=== PATIENT | male | born 1960 | race Caucasian/White ===

== ENCOUNTER → 2017-07-14 | Outpatient (CLI) | payer OTHER ==
[~2017-07-14] VITALS: Ht 193 cm; Wt 124.3 kg
[~2017-07-14] MED LIST: ALPRAZOLAM2 MG PO; ASPIR 8181 MG PO; BAYER PLUS 500500 MG PO; CYMBALTA60 MG PO; EFFIENT10 MG PO; FISH OIL 1,001000 M2 PO; FLEXERIL; FLEXERIL PO; ISOSORBIDE DINI30 MG PO; LEVOTHYROXIN0.137 M1 PO; LIDODERM 5%1 PATC1 TRANSDERM; LISINOPRIL2.5 M1 PO; LISINOPRIL5 MG PO; LOPRESSOR25 PO; LYRICA 75 MG CA75 MG PO; MOBIC15 MG PO; NIASPAN 500 MG500 M1 PO; NITROGLYCERIN0.4 MG SL; PERCOCET 10-321 EACH PO; PERCOCET 5-3251 EACH PO; PRAVACHOL40 MG PO; SIMVASTATIN80 MG PO; TOPIRAGEN50 MG PO; TRAMADOL 50 MG50 MG PO
--- NOTE | ~2017-07-14 | P ---
[facility] [place] [address] PROCEDURE REPORT Name: MURPHY HARVEY Room #: REG SCOUT [facility]#: [id number] Admission: 07/14/17 Attend Phys: Juaquin Lemus MD Discharge: Date of : 58 Report #: [id number] THIS REPORT FOR: //name// CC: Juaquin Henderson MD BRIEF HISTORY: The patient is a 57-year-old male for his first average risk screening colonoscopy. PREOPERATIVE DIAGNOSIS: Average risk screening colonoscopy. POSTOPERATIVE DIAGNOSES: 1. Colon polyps. 2. Moderate sigmoid diverticulosis coli. MEDICATIONS: Deep sedation with propofol per anesthesia. SPECIMENS: 1. Diminutive polyp, hepatic flexure. 2. Diminutive polyp, mid transverse colon. ESTIMATED BLOOD LOSS: 3 mL. PROCEDURE: Colonoscopy to cecum and ileocecal valve with biopsy. FINDINGS: Prior to propofol sedation, the procedure of colonoscopy discussed with the patient as well as potential risks, benefits, and complications. He indicates he understands and desires to proceed. With the patient in left lateral decubitus position, digital examination was completed, which revealed no abnormalities. Subsequently, the [employer] video colonoscope was introduced in the rectum, advanced under direct vision to the cecum. The cecum was identified by the ileocecal valve and the appendiceal orifice. I was able to visualize the ileocecal valve and villi were seen. However, due to looping, we could not intubate the ileocecal valve. At that point, the scope was slowly withdrawn and careful circumferential views were obtained including retroflexing the scope in the ascending colon. Upon slow withdrawal of the scope, the prep was noted to be excellent. Mucosa was within normal limits, normal vascular pattern, and normal light reflex. As we withdrew the scope, no abnormalities were noted until the hepatic flexure was reached at which point a diminutive polyp was seen and removed by biopsy. The scope was further withdrawn and another diminutive polyp was seen and removed by biopsy from the mid transverse colon. Upon further withdrawal of the scope, no additional polyps were seen. The mucosa was otherwise normal through the remainder of the exam. In the sigmoid colon, there was noted to be moderately severe diverticular disease without endoscopic evidence of diverticulitis. The [address] [address] PROCEDURE REPORT Name: MURPHY HARVEY Room #: REG [facility].#: [id number] Admission: 07/14/17 Attend Phys: Juaquin Lemus MD Discharge: Date of : 58 Report #: [id number] scope was withdrawn in the rectum. Upon retroflexion, small to moderate internal hemorrhoids were seen. Scope was withdrawn. The patient tolerated the procedure well. CONDITION OF THE PATIENT UPON DISCHARGE: Following procedure, the patient drowsy, aroused, conversant and will be discharged to home when fully ambulatory. INSTRUCTIONS TO THE PATIENT AND FAMILY AT THE TIME OF DISCHARGE: We will follow up on the path of the polyps. If either one is an adenoma, he should return in 5 years for followup colonoscopy. If these are not neoplastic lesions, then 10 years would be indicated. He has had some problems with constipation, which has been a chronic problem. This is likely a result of his chronic use of narcotics. High fiber diet and fiber supplementation may be helpful. He also may use MiraLax on a daily basis for constipation. This is the patient's first colonoscopy. Withdrawal time from cecum was 19 minutes and 36 seconds. <ELECTRONICALLY SIGNED> By: Juaquin Lemus MD 07/16/17 1158 1001 1230 Juaquin Lemus MD /nt
--- NOTE | ~2017-07-14 | S ---
[facility] [place] [address] SURGICAL PATH RPT PROCEDURE Name: MURPHY BETTENCOURT Room #: REG SCOUT [facility].#: [id number] Admission: 07/14/17 Date of : 58 Discharge: Report #: [id number] Path Case #: [id number] PATHOLOGY REPORT COLLECTION DATE: 07/14/2017 RECEIVED DATE: 07/14/2017 SUBMITTING PHYS: Dr. Juaquin Lemus OTHER PHYS: Dr. Ata Henderson SPECIMEN(S) RECEIVED: A.Hepatic flexure polyp biopsy B.Mid transverse colon polyp biopsy * * * * * * * * * * * * FINAL DIAGNOSIS: A. "Hepatic flexure polyp biopsy", biopsy: - Tubular adenoma; no high-grade dysplasia. B. "Mid transverse colon polyp biopsy", biopsy: - Tubular adenoma; no high-grade dysplasia. (CLW:aleyda; 07/15/2017) PATHOLOGIST: Divya Coulter M.D. REPORT ELECTRONICALLY SIGNED BY: Divya Coulter M.D. DATE/TIME: 07/15/2017 13:15 * * * * * * * * * * * * GROSS PATHOLOGY: A. Received in formalin labeled "Rut Murphy, hepatic flexure biopsy" and consists of 4 mayen mucosal biopsies ranging in size from 0.1 cm-0.3 cm in greatest dimension. The specimen is totally submitted as A1. B. Received in formalin labeled "Murphy Bettencourt, mid transverse colon polyp" and consists of 2 mayen mucosal biopsies each averaging 0.3 cm. The specimen is totally submitted as B1. (ELEAZAR; 07/14/2017) CLINICAL HISTORY: Screening, colon polyps, diverticulosis, hemorrhoids INITIAL CPT CODE(S): A; 79484 B; 49546 Professional services performed by [facility] at [facility] [address] , [place] [address] [facility] [address] [place] [address] SURGICAL PATH RPT PROCEDURE Name: MURPHY BETTENCOURT Room #: REG CLRhea [facility].#: [id number] Admission: 07/14/17 Date of : 58 Discharge: Report #: [id number] Path Case #: [id number] Technical services performed by [facility] at [address] [place] [address], [facility] [address], [place] [address]. [facility] [address] [place] [address] PHONE: [phone] DIRECTOR: Dennis Ayala M.D. * * * END OF REPORT * * *
== END | disposition home or self-care (01) ==
LOC: GI 08:05
DX: D12.3 Benign neoplasm of transverse colon (principal); K57.30 Diverticulosis of large intestine without perforation or abscess without bleeding; I10 Essential (primary) hypertension; I25.2 Old myocardial infarction; E03.9 Hypothyroidism, unspecified; G47.33 Obstructive sleep apnea (adult) (pediatric); M10.9 Gout, unspecified; F17.210 Nicotine dependence, cigarettes, uncomplicated; F32.89 Other specified depressive episodes; F41.8 Other specified anxiety disorders; Z98.890 Other specified postprocedural states; Z95.5 Presence of coronary angioplasty implant and graft; Z88.8 Allergy status to other drugs, medicaments and biological substances; Z79.82 Long term (current) use of aspirin; Z79.891 Long term (current) use of opiate analgesic; Z79.899 Other long term (current) drug therapy
CPT/HCPCS: 62110; 62900

== ENCOUNTER 2018-07-01 05:41 | Inpatient (IN) | payer OTHER ==
[2018-07-01] VITALS (38 sets, daily range): BP systolic 90–157; BP diastolic 67–99
[~2018-07-01] VITALS: Ht 193 cm; Wt 126.6 kg
[2018-07-01] MEDS ORDERED: SYNTHROID150 MCG PO ×2 (05:50→10:25)
[2018-07-01 06:03] LABS: HEMATOCRIT 45.9 % (42.0-52.0); HEMOGLOBIN 14.9 gm/dL (14.0-18.0); MCHC 32.6 g/dL (28.0-37.0); MCV 95.2 fL (80.0-100.0); PLATELET COUNT 180 thou/uL (150-400); RBC 4.82 mil/uL (4.50-6.00); RDW 14.8 % (10.5-14.5); WBC 14.8 thou/uL (4.0-11.0)
[2018-07-01 06:12] LABS: ANION GAP 17 mmol/L (7-16); BUN 34 mg/dL (7-18); CALCIUM 8.9 mg/dL (8.5-10.1); CHLORIDE 101 mmol/L (98-107); CO2 18 mmol/L (21-32); CREATININE 2.9 mg/dL (0.7-1.3); GLUCOSE 114 mg/dL (74-106); POTASSIUM 5.9 mmol/L (3.5-5.1); SODIUM 136 mmol/L (136-145)
[2018-07-01 06:23] LABS: ALBUMIN 2.9 g/dL (3.4-5.0); SGPT 1926 U/L (30-65); TOTAL BILIRUBIN 1.2 mg/dL (<0.1-1.0); TOTAL PROTEIN 7.2 g/dL (6.4-8.2); TROPONIN-I <0.06 ng/mL (<0.06)
[2018-07-01 06:43] LABS: ABSOLUTE NEUTROPHILS 11.1 thou/uL (1.4-8.2)
[2018-07-01 06:44] LABS: BE(vivo) -7.2 mmol/L (-2 to +3); HCO3 19.4 mmol/L (22.0-26.0); PCO2 42.9 mmHg (35.0-45.0); PO2 68.1 mmHg (80.0-100.0); pH 7.273 (7.360-7.450); sO2 91.2 % (92.0-98.0)
[2018-07-01 06:56] LABS: SGOT 3269 U/L (15-37)
[2018-07-01 08:38] LABS: URINE CLARITY SL CLOUDY; URINE COLOR AMBER; URINE SPECIFIC GRAVITY > 1.030 (1.005-1.035)
[2018-07-01 08:39] LABS: ICTOTEST (BILI CONFIRMATORY) Negative (Negative); URINE BILIRUBIN NEGATIVE (Negative); URINE BLOOD 1+ (Negative); URINE GLUCOSE-RANDOM* NEGATIVE (Negative); URINE KETONES TRACE (Negative); URINE LEUKOCYTES-REFLEX NEGATIVE (Negative); URINE NITRITE-REFLEX POSITIVE (Negative); URINE PROTEIN (DIPSTICK) 2+ (Negative); URINE UROBILINOGEN 0.2 E.U./dl (0.2-1.0)
[2018-07-01 08:45] LABS: AMP/METHAMP Negative (Negative); BARBITURATES Negative (Negative); BENZODIAZEPINES POSITIVE (Negative); COCAINE Negative (Negative); METHADONE Negative (Negative); OPIATES POSITIVE (Negative); PCP Negative (Negative)
[2018-07-01 08:55] LABS: AMORPHOUS URATES Moderate /LPF (None Seen); COARSE GRANULAR CASTS >10 Many /LPF (None Seen); FINE GRANULAR CASTS 4-10 Moderate /LPF (None Seen); HYALINE CASTS 0-3 Few /LPF (None Seen); MUCUS >6 Heavy strn/LPF (None Seen); SQUAMOUS 4-10 Moderate /LPF (0-3); URINE RBC 0-2 Rare /HPF (0-2); URINE WBC-REFLEX 6-15 Few /HPF (0-5)
[2018-07-01 09:04] LABS: APTT 28.3 Seconds (24.5-32.8); INR 1.4; PROTIME 14.9 Seconds (9.3-11.4)
[2018-07-01 09:15] LABS: TROPONIN-I 0.07 ng/mL (<0.06)
--- NOTE | 2018-07-01 10:50 | EKG ---
[address] [place] [address] ELECTROCARDIOGRAM REPORT Name: MURPHY HARVYE Room #: 240-P ADM IN M.R.#: [id number] Admission: 07/01/18 Attend Phys: Ulises Renae Discharge: Date of : 58 Report #: [id number] THIS REPORT FOR: //name// [facility] ED Test Date: 2018-07-01 Test Time: 06:12:18 Pat Name: MURPHY HARVEY Department: Room: 240 Gender: M Field Radio Technician: POLLY : 1960 Requested By: Clare Flores Order Number: [id number] MD: Estrada Lyle Measurements Intervals Malone Rate: 66 P: 58 SC: 153 QRS: 87 QRSD: 114 T: 42 QT: 489 QTc: 513 Interpretive Statements Sinus rhythm Abnormal T, consider ischemia, anterior leads Prolonged QT interval Compared to ECG 08/12/2016 16:08:33 T-wave abnormality now present Prolonged QT interval now present Electronically Signed On 07-01-2018 10:50:23 SENIOR MANAGEMENT CONSULTANT by Estrada Lyle [email or web address] <ELECTRONICALLY SIGNED> By: Estrada Lyle MD, [facility] 07/01/18 1050 1 1 Estrada Lyle MD, [facility] /EPI
--- NOTE | 2018-07-01 12:50 | NUR ---
CONSULTED TO PLACE A PICC FOR A PATIENT ADMITTED TO ICU WITH RR DISTRESS. ORDER AND CONSENT NOTED. THE PROCEDURE WELL BENIFITS AND RISK OF DVT AND INFECTION DISCUSSED WITH THE PATIENT AND HE VERBALIZED UNDERSTANDING. THE RUE BASILIC WAS WIDLEY PATENT. A #5F TRIPLE LUMEN POWER PICC WAS PLACED PER HOSPITAL POLICY AFTER A BEDSIDE TIMEOUT WAS COMPLETED. THE LINE WAS TRIMMED TO 53CM AND ADVANCED WITHOUT DIFFICULTY.A STAT CHEST XRAY WAS ORDERED FOR PLACEMENT VERIFICATION
--- NOTE | 2018-07-01 13:52 | 2DMMODE ---
[facility] [address] [place] [address] 2 D/M-MODE ECHOCARDIOGRAM Name: MURPHY HARVEY Room #: 240-P [facility] IN M.R.#: [id number] Admission: 07/01/18 Attend Phys: Ulises Cordova Discharge: Date of : 58 Date of Service: 07/01/18 1351 Report #: [id number] THIS REPORT FOR: //name// APPROVED REPORT Study performed: 07/01/2018 09:31:26 EXAM: Comprehensive 2D, Doppler, and color-flow Echocardiogram Patient Location: Bedside Room #: 240 Status: on-call BSA: 2.55 HR: 65 bpm BP: 103/74 mmHg Rhythm: NSR Other Information Study Quality: Adequate Risk Factors: Cardiac Risk Factors: Smoking, Hyperlipidemia, HTN Indications CAD Syncope Cardiogenic Shock 2D Dimensions IVSd: 14.54 (7-11mm) LVOT Diam: 20.00 (18-24mm) LVDd: 42.02 mm PWd: 12.78 (7-11mm) Ascending Ao: 34.93 (22-36mm) LVDs: 27.74 (25-40mm) Aortic Root: 34.65 mm Aortic Valve AoV Peak Sukhdeep.: 1.10 m/s AO Peak Gr.: 4.81 mmHg LVOT Max P.13 mmHg LVOT Max V: 0.73 m/s JESSICA Vmax: 2.01 cm2 Mitral Valve E/A Ratio: 0.7 MV Decel. Time: 249.49 ms MV E Max Sukhdeep.: 0.60 m/s [facility] [address] [place] [address] 2 D/M-MODE ECHOCARDIOGRAM Name: MURPHY HARVEY Room #: 240-P [facility] IN ..#: [id number] Admission: 07/01/18 Attend Phys: Ulises Cordova Discharge: Date of : 58 Date of Service: 07/01/18 1351 Report #: [id number] MV A Sukhdeep.: 0.83 m/s MV PHT: 72.35 ms IVRT: 55.36 ms TDI E/Lateral E': 7.50 E/Medial E': 7.50 Medial E' Sukhdeep.: 0.08 m/s Lateral E' Sukhdeep.: 0.08 m/s Pulmonary Valve PV Peak Sukhdeep.: 0.70 m/s PV Peak Gr.: 1.94 mmHg Tricuspid Valve TR Peak Sukhdeep.: 3.15 m/s RAP Estimate: 10.00 mmHg TR Peak Gr.: 39.76 mmHg PA Pressure: 50.00 mmHg Left Ventricle The left ventricle is normal size. There is normal LV segmental wall motion. Moderate concentric left ventricular hypertrophy. Left ventricular systolic function is normal. The left ventricular ejection fraction is within the normal range. LVEF is 60-65%. Grade I - abnormal relaxation pattern. Right Ventricle Right ventricle is dilated. Right ventricular systolic function is reduced. Atria The left atrium size is normal. Right atrium is dilated. Aortic Valve The aortic valve is sclerotic. No aortic regurgitation is present. There is no aortic valvular stenosis. Mitral Valve The mitral valve is normal in structure. There is no mitral valve regurgitation noted. No evidence of mitral valve stenosis. Tricuspid Valve The tricuspid valve is normal in structure. Moderate tricuspid regurgitation. Pulmonary artery pressure is 50 mmHg. Pulmonic Valve The pulmonary valve is normal in structure. Trace to mild pulmonic regurgitation. [facility] [place] [address] 2 D/M-MODE ECHOCARDIOGRAM Name: MURPHY HARVEY Room #: 240-P ADM IN M.R.#: [id number] Admission: 07/01/18 Attend Phys: Ulises Cordova Discharge: Date of : 58 Date of Service: 07/01/18 1351 Report #: [id number] Great Vessels The aortic root is normal in size. IVC is normal in size and collapses <50% with inspiration. Pericardium There is no pericardial effusion. <Conclusion> Left ventricular systolic function is normal. There is normal LV segmental wall motion. LVEF is 60-65%. Mild diastolic dysfunction Right ventricle and atrium are dilated. Right ventricular systolic function is reduced. The aortic valve is sclerotic. No aortic regurgitation or stenosis The mitral valve is normal in structure. No mitral valve regurgitation. Moderate tricuspid regurgitation. Pulmonary artery pressure of 50 mmHg. There is no pericardial effusion. <ELECTRONICALLY SIGNED> By: Estrada Lyle MD, FACC 07/01/18 135 50 50 Estrada Lyle MD, FACC /INF
--- NOTE | 2018-07-01 18:28 | NUR ---
PT A/O X 4 /C FORGETFULLNESS - COMPULSIVENESS THAT REQUIRES REMINDERS TO STAY IN BED LEAVE CATHETER ALONE LEAVE OXYGEN MASK ON - VSS - FAMILY AT BEDSIDE MAJORITY OF DAY - MEDICATIONS GIVEN PER ORDERS - PICC IN PLACE - BM X 1 - MOMENTS OF ANXIOUSNESS BUT ABLE TO REDIRECT AND CALM - DOES START DESATING WHEN OXYGEN MASK IS REMOVED
[2018-07-02] VITALS (21 sets, daily range): BP systolic 107–160; BP diastolic 65–105
[2018-07-02 03:25] LABS: BE(vivo) 6.6 mmol/L (-2 to +3); HCO3 31.7 mmol/L (22.0-26.0); PCO2 47.1 mmHg (35.0-45.0); PO2 66.5 mmHg (80.0-100.0); pH 7.446 (7.360-7.450); sO2 93.8 % (92.0-98.0)
[2018-07-02 05:46] LABS: MCHC 33.1 g/dL (28.0-37.0); MCV 93.4 fL (80.0-100.0); RBC 4.18 mil/uL (4.50-6.00); RDW 14.7 % (10.5-14.5); WBC 8.7 thou/uL (4.0-11.0)
[2018-07-02 05:48] LABS: HEMOGLOBIN 12.9 gm/dL (14.0-18.0)
[2018-07-02 05:58] LABS: INR 1.3; PROTIME 13.4 Seconds (9.3-11.4)
[2018-07-02 06:03] LABS: ALBUMIN 2.7 g/dL (3.4-5.0); ANION GAP 4 mmol/L (7-16); BUN 17 mg/dL (7-18); CALCIUM 8.1 mg/dL (8.5-10.1); CHLORIDE 102 mmol/L (98-107); CO2 34 mmol/L (21-32); GLUCOSE 93 mg/dL (74-106); MAGNESIUM 2.2 mg/dL (1.8-2.4); POTASSIUM 3.9 mmol/L (3.5-5.1); SGPT 2359 U/L (30-65); SODIUM 140 mmol/L (136-145); TOTAL BILIRUBIN 0.8 mg/dL (<0.1-1.0); TOTAL PROTEIN 6.4 g/dL (6.4-8.2); TROPONIN-I <0.06 ng/mL (<0.06)
[2018-07-02 06:07] LABS: CREATININE 0.9 mg/dL (0.7-1.3)
[2018-07-02 06:20] LABS: SGOT 3677 U/L (15-37)
--- NOTE | 2018-07-02 08:00 | NUR ---
ASSUMED CARE OF PT AT 1900. PT ON VENTIMASK 50%. PT EXTREMELY RESTLESS AND IMPULSIVE THROUGHOUT THE NIGHT. PT WAS OFTEN EXTREMELY AGITATED AND UNCOOPERATIVE WITH NURSING STAFF. IN HOUSE WATCHER LOOKOUT TOWER CONTACTED FOR SOME ANTI-ANXIETY MEDICATION FOR PT; ORDER FOR A ONETIME DOSE OF 1 MG OF ATIVAN RECEIVED. HELPED CALM PT SLIGHLTLY FOR A SHORT PERIOD OF TIME. PT WAS EXTREMELY AGITATED AND SAT UP ON THE SIDE OF THE BED. PT ASKED, "WHAT AM I SUPPOSED TO BE DOING HERE? I'M NOT JUST EXPECTED TO SIT HERE, AM I?" DESPITE THOROUGH EDUCATION, OVER THE COURSE OF THE ENTIRE NIGHT, PT INSISTED THAT HE WAS NOT SICK AND DID NOT BELONG IN A HOSPITAL. PT TOLD NURSING STAFF THAT HE DID NOT NEED TO WEAR THE VENTIMASK DESPITE BEING INFORMED THAT HE WAS REQUIREING HIGH AMOUNTS OF O2 AT THE TIME. PT EXTREMELY WEAK AND UNSTEADY ON FEET, BUT PT INSISTED THAT HE WAS GOING TO WALK TO THE TOILET. PT WAS UNCOOPERATIVE AND DID NOT UNDERSTAND WHY HE WAS SUPPOSED TO STAY HERE. WITH THE PT'S SAFETY AT RISK, SECURITY WAS CALLED TO THE ROOM. STAFF HELPED THE PT BACK INTO BED. ABG DRAWN BY RT. DR. CHO CALLED AND INFORMED ON PT'S CURRENT CONDITION. HALDOL ORDERED AND PT PLACED ON NC. HALDOL CALMED PT SOMEWHAT, BUT REMAINED UNCOOPERATIVE AND AGITATED, REFUSING CARE, ATTEMPTING TO PULL AT CATHETER AND OXYGEN; RESTRAINTS WERE APPLIED FOR PT SAFETY. ASSESSMENTS AND VITALS DOCUMENTED. WILL CONTINUE TO MONITOR.
--- NOTE | 2018-07-02 08:50 | HC ---
[facility] [place] [address] CONSULTATION Name: MURPHY HARVEY Room #: 240-P [facility] IN M.R.#: [id number] Admission: 07/01/18 Attend Phys: Ulises Renae Discharge: Date of : 58 Report #: [id number] THIS REPORT FOR: //name// CC: Ulises Henderson MD REASON FOR CONSULTATION: The patient is a 58-year-old male, admitted to the Emergency Room with markedly abnormal liver function studies. HISTORY OF PRESENT ILLNESS: This 58-year-old male has a history of multiple medical problems, but most notably chronic back pain. He is on chronic narcotics due to his back pain. He reports that he just has not been feeling well since the first of the year. He is somewhat vague on symptoms. He said he just does not feel right. He does not have much appetite. He does not feel like eating. He denies any fever or chills, but reports he has sweats at night time. Apparently, last night before presentation to the Emergency Room, he had a syncopal event. He says he fell out of bed and fell on the floor. He reports that he has just been generally feeling weak. He was brought to [facility] and evaluated in the Emergency Room. Laboratory studies showed a white count of 14.8, hemoglobin 14.9, platelet count 180,000. INR of slightly 1.4, sodium 136, potassium 5.9, CO2 of 18, BUN of 34, creatinine 2.1. His baseline creatinine I believe is 1. His hemoglobin A1c is 6. Lactic acid of 3.3, total bilirubin 1.2, AST of 3269, ALT of 1926. Alkaline phosphatase was normal. Ammonia is slightly elevated at 37. Troponin 0.07, albumin 2.9, cholesterol 215, triglycerides 179. Amylase 14, lipase of 50. TSH of 38.379, free T4 of 0.8. His procalcitonin was elevated at 1.69. In addition, his blood gases showed a pH of 7.273, pCO2 of 42.9, pO2 of 68.1. In addition, an ultrasound of the abdomen revealed the possibility of cholecystitis with some thickening of the gallbladder wall and a small amount of pericholecystic fluid. Also, there is suggestion of fatty liver on evaluation of the liver. The patient reports he has not had any previous liver problems. He has never had hepatitis or jaundice. Denies use of illicit drugs with shared needles. There is no family history of liver disease. He has donated blood in the past, but it has been many years and he did not have problems with blood donation. He also reports that he drinks very little alcohol and has never had an alcohol problem. There is a lot of confusion with regards to his thyroid medicine. He said he saw Dr. Ata Henderson 2 days ago and his thyroid medicine was adjusted. However, each time he tells a story, he tells it differently, so it is not entirely clear [address] [address] CONSULTATION Name: MURPHY HARVEY Room #: 240-P [facility] IN M.R.#: [id number] Admission: 07/01/18 Attend Phys: Ulises Renae Discharge: Date of : 58 Report #: [id number] how much thyroid medicine he has been taking. REVIEW OF SYSTEMS: GENERAL: He reports he has not lost any weight. However, he has had anorexia and just does not feel like eating. He has had night sweats, but denies fever. CENTRAL NERVOUS SYSTEM: Syncopal episode last night, but otherwise no weakness, numbness, loss of consciousness, seizures or strokes. ENT: No change in vision, hearing or sores in the mouth. He does not see well out of the left eye due to a childhood injury. PULMONARY: No cough, pneumonia or tuberculosis. CARDIOVASCULAR: No chest pain, chest tightness or palpitations. GASTROINTESTINAL: Some anorexia. He vomited a small amount of material last night without blood. He tends to have constipation from his narcotics. He has not had any rectal bleeding. Colonoscopy a year ago was noted. GENITOURINARY: Without dysuria, pyuria, kidney stones, contractures, kidney tract infection. MUSCULOSKELETAL: Chronic back pain. SKIN: Without rashes. PSYCHIATRIC: Treated for anxiety, also has depression. ENDOCRINE: Hypothyroidism. HEMATOLOGIC: No bleeding, bruising malignancy. PAST MEDICAL HISTORY: Chronic back pain. Long-term cigarette smoker. He has a history of coronary artery disease with previous MT and cardiac stent placement. I completed a colonoscopy on him almost a year ago and 2 diminutive polyps were removed. He did have some diverticulosis. He has also been treated for anxiety. He does have sleep apnea, but does not use a CPAP machine. He has had high blood pressure. He has had hypothyroidism and hyperlipidemia. ALLERGIES: TRAMADOL. USUAL HOME MEDICINES: Lidocaine patch daily, alprazolam 2 mg 4 times daily as needed, levothyroxine 150 mcg. The records state that he takes ____4 times daily, metoprolol 25 mg daily, pravastatin 40 mg daily, lisinopril 2.5 mg daily, fish oil 1000 mcg daily, aspirin 81 mg daily, oxycodone with acetaminophen 10/325 every 6 hours as needed. FAMILY HISTORY: No family history of colon cancer or ulcer disease. SOCIAL HISTORY: . He states he has been a long-term cigarette smoker. He uses alcohol very infrequently. He is disabled due to his back. PHYSICAL EXAMINATION: GENERAL: The patient is a well-developed, well-nourished, obese male in no acute distress. HEENT: Anicteric. Pupils equal and round. Oropharynx clear. [facility] [address] [place] [address] CONSULTATION Name: MURPHY HARVEY Room #: 240-P [facility] IN M.R.#: [id number] Admission: 07/01/18 Attend Phys: Ulises Renae Discharge: Date of : 58 Report #: [id number] NECK: Supple. CHEST: With few scattered wheezes. HEART: Regular rate and rhythm, normal S1 and normal S2. ABDOMEN: Obese. Normal bowel sounds, soft, nontender, without hepatosplenomegaly or masses. RECTAL: Not done. EXTREMITIES: Without cyanosis, clubbing, or edema. NEUROLOGIC: Alert and oriented to person and place. Moves all 4 extremities well. ASSESSMENT: 1. Markedly elevated liver function studies. At this point, most likely etiology is shock liver. 2. Possible cholecystitis. 3. Coronary artery disease with intracoronary stents. 4. Long-term cigarette smoker. 5. Sleep apnea. 6. Lactic acidosis. 7. Acute kidney injury. 8. Hypothyroidism. RECOMMENDATIONS: 1. Monitor liver function studies. 2. Monitor prothrombin time. 3. Continue supportive care in the Intensive Care Unit. 4. Try to clarify with family what dosage of thyroid medicine he is actually taking. <ELECTRONICALLY SIGNED> By: Juaquin Lemus MD 07/02/18 0850 [id number] [id number] Juaquin Lemus MD /nt
--- NOTE | 2018-07-02 12:10 | EKG ---
[place] [address] [facility] [place] [address] ELECTROCARDIOGRAM REPORT Name: MURPHY HARVEY Room #: 240-P ADM IN M.R.#: [id number] Admission: 07/01/18 Attend Phys: Ulises Renae Discharge: Date of : 58 Report #: [id number] THIS REPORT FOR: //name// [facility] Test Date: 2018-07-02 Test Time: 10:15:38 Pat Name: MURPHY HARVEY Department: Room: 240 P Gender: M Software Solutions Architect: RAHEEM : 1960 Requested By: Estrada Lyle Order Number: [id number] MD: Estrada Lyle Measurements Intervals [place] Rate: 84 P: 47 NV: 151 QRS: 58 QRSD: 104 T: 204 QT: 443 QTc: 524 Interpretive Statements Sinus rhythm Abnrm T, consider ischemia, anterolateral lds Prolonged QT interval Compared to ECG 07/01/2018 06:12:18 Lateral T wave abnormality is more pronounced Electronically Signed On 07-02-2018 12:10:37 [employer]ATER [employer]REL by Estrada Lyle [email or web address] <ELECTRONICALLY SIGNED> By: Estrada Lyle MD, [facility] 07/02/18 1210 1015 1015 Estrada Lyle MD, [facility] /EPI
--- NOTE | 2018-07-02 17:45 | NUR ---
ASSESSMENT CHARTED. PT ALERT AND ORIENTED WITH FORGETFULLNESS. COOPERATIVE WITH CARES. RESTRAINED D/C AT 0701. PRN PAIN MED GIVEN FOR BACK PAIN WITH PARTIAL RELIEF. UP IN THE CHAIR X1 THIS SHIFT. VSS. HASSAN CATHETER INTACT TO DD. SEEN BY DR. SZYMANSKI. ORDERS GIVEN TO TRANSFER PT TO CCU. STILL WAITING FOR CCU BED. CHECKED FREQUENTLY AND NEEDS MET. FALL PRECAUTION ENFORCED. WILL CONTINUE TO MONITOR.
--- NOTE | 2018-07-03 02:42 | NUR ---
ASSUMED CARE OF PT AT 1900. PT ASLEEP INITIALLY, BUT PT WOKE UP SOON AFTER AND GOT OF BED ON HIS OWN, PULLING AT ALL WIRES, OXYGEN, AND CATHETER. PT ORIENTED X4, BUT IS UNAWARE OF HIS CURRENT CONDITION-INCLUDING WEAKNESS AND NEED FOR O2. PT FREQUENTLY C/O CATHETER AND URGE TO VOID. AT THIS TIME, IT IS UNSAFE FOR THE PT TO GET OUT OF BED ON HIS OWN D/T TO WEAKNESS AND UNSTEADY GAIT. THE PT IS VERY NONCOMPLIANT WITH SAFETY PRECAUTIONS AND IMPULSIVE, THEREFORE IT WOULD RISK THE PT'S SAFETY TO D/C CATHETER AT THIS TIME. PT FREQUENTLY AND THOROUGHLY EDUCATED ON SAFETY PRECAUTIONS AND WHY WE HAVE THEM. PT HAS LESS SOA, BUT O2 SAT WILL DROP WHEN O2 IS OFF. PT IS ON 4L O2 PER NC. SPOKE WITH , SHE WOULD LIKE TO SPEAK WITH CASE MANAGEMENT REGARDING PT'S PLANS FOR AFTER D/C. PT ORDERS TO TX TO CC TELE. WILL CONTINUE TO MONITOR.
[2018-07-03 05:08] LABS: HEMATOCRIT 40.1 % (42.0-52.0); HEMOGLOBIN 13.3 gm/dL (14.0-18.0); MCH 31.1 pg (26.0-34.0); MCHC 33.2 g/dL (28.0-37.0); MCV 93.5 fL (80.0-100.0); RBC 4.29 mil/uL (4.50-6.00); RDW 14.5 % (10.5-14.5); WBC 8.3 thou/uL (4.0-11.0)
[2018-07-03 05:37] LABS: ALBUMIN 2.7 g/dL (3.4-5.0); ANION GAP 4 mmol/L (7-16); BUN 13 mg/dL (7-18); CALCIUM 8.5 mg/dL (8.5-10.1); CHLORIDE 100 mmol/L (98-107); CO2 35 mmol/L (21-32); CREATININE 0.9 mg/dL (0.7-1.3); GLUCOSE 84 mg/dL (74-106); POTASSIUM 3.8 mmol/L (3.5-5.1); SGOT 1129 U/L (15-37); SGPT 1760 U/L (30-65); SODIUM 139 mmol/L (136-145); TOTAL BILIRUBIN 0.7 mg/dL (<0.1-1.0); TOTAL PROTEIN 6.5 g/dL (6.4-8.2); TROPONIN-I <0.06 ng/mL (<0.06)
[2018-07-03 08:00] VITALS: BP 116/74; BP 126/63
[2018-07-03 10:59] VITALS: BP 104/72
--- NOTE | 2018-07-03 11:23 | HC ---
[facility] [place] [address] CONSULTATION Name: MURPHY HARVEY Room #: 351-P [facility] IN M.R.#: [id number] Admission: 07/01/18 Attend Phys: Ulises Renae Discharge: Date of : 58 Report #: [id number] THIS REPORT FOR: //name// CC: Ulises Henderson DATE OF SERVICE: 07/02/2018 INFECTIOUS DISEASE CONSULTATION REASON FOR CONSULTATION: Sepsis. ATTENDING PHYSICIAN: Ulises Renae M.D. HISTORY OF PRESENT ILLNESS: The patient is a 58-year-old white man, a rather poor historian, who apparently was brought to the Emergency Room by his family after question syncopal episode. The patient goes around in circles and unable to give a coherent medical history. Consequently, all the information gathered from review of records. PAST MEDICAL HISTORY: Back surgery, L4-L5 fusion, 2005, chronic back pain. Cigarette smoking, 1 package a day for 40 years; cardiac stents, 2008; right middle finger amputation; diverticulitis; sleep apnea, not using CPAP; hypertension; hypothyroidism and dyslipidemia. DRUG ALLERGIES: TRAMADOL. MEDICATIONS: The patient is currently on treatment with nicotine patch, lorazepam, levothyroxine, famotidine, p.r.n. glucose, Glucagon, regular insulin per infusions, p.r.n. pressors, vasopressin and Levophed. The patient had not used any of those. Meropenem a gram IV 2 times daily. He has received some sodium bicarbonate. He appears to be on Rocephin as well. SOCIAL HISTORY: See H and P, old records. FAMILY HISTORY: See H and P, old records. REVIEW OF SYSTEMS: The patient is deemed not to be a good historian. Please see ER records. PHYSICAL EXAMINATION: GENERAL: A well-developed man. VITAL SIGNS: Hypotensive in the Emergency Room yesterday with blood pressure 82/56, temperature maximum 99.1, pulse 71 and respirations 28. Currently, his blood pressure is 143/90, temperature 99.5, respirations 20 and pulse 70 per minute. [facility] [address] [place] [address] CONSULTATION Name: MURPHY HARVEY Room #: 351-P [facility] IN M.R.#: [id number] Admission: 07/01/18 Attend Phys: Ulises Moreno Tashainga Discharge: Date of : 58 Report #: [id number] HEENT: Within range. NECK: Supple. No thyromegaly. LUNGS: Clear. HEART: S1, S2. No gallop or murmur. ABDOMEN: Soft. No masses or megaly. EXTREMITIES: No clubbing or cyanosis. NEUROLOGIC: Grossly within normal limits. LABORATORY DATA: On admission, potassium 5.9, today 3.9; CO2 18 on admission, 34 today; BUN 34 and creatinine 2.9 on admission, today down to 17 and 0.9. Elevation of SGOT of 3269 and 3767 today, bilirubin 1.2 on admission and SGPT 2359 today. Albumin 2.7. LDH significantly elevated at 5774 as well. Protime 13.4. The urine screen for drugs reveal positive benzodiazepines, positive opiates and positive tetrahydrocannabinol. White blood cell count on admission 14,800, hemoglobin 14.9 g/dL and platelets 180,000 with white blood cell count differential revealing 73% segmented neutrophils. A repeat CBC today revealed a white blood cell count has dropped to 8700, hemoglobin 12.9 g/dL and platelets have decreased to 140,000. No white blood cell count differential today. TSH significantly elevated of 38.3. Hepatitis A, B and C serology are pending. MRSA screen negative. Procalcitonin mildly elevated, 1.69. Urinalysis reveal 6-15 wbc's per HPF, heavy mucus, moderate fine granular casts and greater than 10 coarse granular casts. Arterial blood gases on admission reveal pH of 7.27, pCO2 of 42, pO2 of 68, bicarbonate 19.4 and lactate elevated at 359. These set of gases are on FiO2 of 50%. Repeat gases today revealed pH of 7.44, pCO2 of 47, pO2 of 66, bicarbonate 31 and lactate 1.50. This set of gases on 5 liters per nasal cannula. Urine and blood cultures were obtained on admission and they remain negative so far. RADIOLOGIC EVALUATION: A chest x-ray on admission revealed decreased inspiratory effort and bibasilar atelectasis. Ultrasound of the abdomen, thickening of the gallbladder wall with small amount of surrounding pericholecystic fluids, possible acute cholecystitis, enlarged liver with fatty infiltration and normal spleen size. ASSESSMENT: 1. Severe sepsis, possibly acute urinary tract infection versus cholangitis. 2. Possible pulmonary hypertension. 3. Coronary artery disease. 4. Acute kidney injury, improved, resolved. 5. Leukocytosis, improved. 6. Development of thrombocytopenia. 7. Significant elevation of liver function test. SUGGESTIONS: Recommend Zosyn 4.5 grams IV single dose, followed by 3.375 grams IV every 8 hours for treatment of possible cholangitis. [facility] [address] [place] [address] CONSULTATION Name: MURPHY HARVEY Room #: 351-P ADM IN M.R.#: [id number] Admission: 07/01/18 Attend Phys: Uilses Renae Discharge: Date of : 58 Report #: [id number] Renae, thank you for requesting our suggestions in the care of your patient. <ELECTRONICALLY SIGNED> By: Alan Reid MD 07/03/18 1123 [id number] [id number] Alan Reid MD /nt
--- NOTE | 2018-07-03 11:35 | NUR ---
ASSUMED CARE OF PT AT 0700 THIS SHIFT. PT HAS BEEN COOPERATIVE, SOMEWHAT CONFUSED AT TIMES, DROWSY. PT RECIEVED TRANSFER ORDERS THIS MORNING, WAS TRANSFERED OUT AT 1045 THIS SHIFT, REPORT GIVEN TO 3WEST RN. ASSESSMENTS ARE DOCUMENTED. PT HAS HAD VISITOR THIS MORNING, EDUCATION WAS PROVIDED. PLAN OF CARE IS TO CONTINUE TO MONITOR PT AT THIS TIME.
--- NOTE | 2018-07-03 12:00 | NUR ---
PT RECEIVED FROM ICU AROUND 1145..PATIENT VERY GROGGY AND CONFUSED..ALL FALL PREC IN PLACE..FREQ ROUNDS..
--- NOTE | 2018-07-03 14:08 | NUR ---
Nutrition: pt admit with respiratory distress, weakness, syncope. Initial risk for poor intake, weight loss. Pt reports decreased appetite past 2 weeks. weight hx indicated as variable between 280-300#. Current 280#. Obesity class 1. Intake currently 50% of meals on regular diet. Increased LFTs. Hx fatty liver. Instructed on ordering meals. Consider low nutrition risk.
[2018-07-03 16:12] VITALS: BP 117/62
[2018-07-03 19:11] VITALS: BP 134/82
[2018-07-04] VITALS (7 sets, daily range): BP systolic 105–140; BP diastolic 54–95
--- NOTE | 2018-07-04 03:30 | NUR ---
ASSUMED PT CARE AROUND 1900. ALERT AND ABLE TO ANSWER MOST ORIENTATION QUESTIONS. PERIODS OF FORGETFULNESS. DENIES ANY SIGNIFICANT PAIN. PT CAN BE IMPULSIVE AT TIMES. FALL PRECAUTIONS IN PLACE. SOA W/ EXERTION. VOIDING PER URINAL. PT SLEPT OFF AND ON DURING THE NIGHT. PROGRESSING SLOWLY TOWARD POC GOALS. WILL CONTINUE TO MONITOR FURTHER.
--- NOTE | 2018-07-04 08:19 | HC ---
[facility] [place] [address] CONSULTATION Name: MURPHY HARVEY Room #: 351-P [facility] IN M.R.#: [id number] Admission: 07/01/18 Attend Phys: Ulises Renae Discharge: Date of : 58 Report #: [id number] THIS REPORT FOR: //name// CC: Ulises Henderson DATE OF SERVICE: 07/01/2018 REASON FOR CONSULTATION: Coronary artery disease. HISTORY OF PRESENT ILLNESS: The patient is a 58-year-old gentleman with a history of remote coronary stenting and normal left ventricular systolic function. Over the past several weeks, he has had fevers and diaphoresis. He has had a nonproductive cough and fairly profound weakness. He has been on 2 courses of antibiotics including amoxicillin and more recently a Z-FEMI. On 04/28/2018, he saw Dr. Henderson in the office. Lisinopril was started. Since then, his reports that he was having frequent episodes of lightheadedness. He was found by his son today slumped over and unconscious. Apparently had gotten up to use the bathroom and passed out. He denies chest heaviness, pressure or ischemic type symptoms. No heart failure symptoms including orthopnea, paroxysmal nocturnal dyspnea or lower extremity edema. No history of palpitations. MEDICATIONS: Include alprazolam, levothyroxine 150 mcg daily, metoprolol 25 mg daily, pravastatin 40 mg daily, lisinopril 2.5 mg daily and aspirin and Percocet. PAST MEDICAL HISTORY: Medical records have been reviewed and include a history of sleep apnea. He does not use CPAP, hypertension, dyslipidemia, COPD with a 18-[id number]-[id number] smoking history, prior back fusion and diverticulosis, finger amputation. SOCIAL HISTORY: He is an ongoing smoker, . FAMILY HISTORY: Notable for premature coronary artery disease. REVIEW OF SYSTEMS: All systems negative except as that noted above. PHYSICAL EXAMINATION: GENERAL: A pleasant gentleman who is alert and in no distress. VITAL SIGNS: Blood pressure is 90/68, heart rate is 67 and regular, his temperature is 99.9 degrees, 6 feet 4 inches tall, 249 pounds. HEENT: There are neither xanthelasma, subcutaneous xanthomata, oral mucosal or digital cyanosis or kyphoscoliosis present. CHEST: Reveals diminished breath sounds at both bases with mid end expiratory wheezes. [facility] [address] [place] [address] CONSULTATION Name: MURPHY HARVEY Room #: 351-P [facility] IN M.R.#: [id number] Admission: 07/01/18 Attend Phys: Ulises Renae Discharge: Date of : 58 Report #: [id number] CARDIAC: Regular rate and rhythm with normal S1 and increased pulmonic closure sound. ABDOMEN: Soft and nontender. EXTREMITIES: Without cyanosis, clubbing or edema. Radial pulses are 2+. NEUROLOGIC: He is alert with a nonfocal exam. LABORATORY DATA: Sodium 137, potassium 5.7, creatinine 2.9, creatinine in 08/2016 was 1.0. Troponin 0.07. Lactic acid 3.3, LDH 5774. White count 14.8, hemoglobin 14, hematocrit 45, platelet count 180. Abdominal ultrasound demonstrates thickening of the gallbladder hunter, small amount of pericholecystic fluid. Chest x-ray demonstrates heart size is upper limits of normal. Vascularity is normal. EKG sinus rhythm with anterior T-wave abnormality. IMPRESSION: 1. Sepsis. 2. Right ventricular enlargement; pulmonary hypertension. 3. Coronary artery disease with remote stenting. 4. Hypotension, septic shock. 5. Acute kidney injury. 6. Chronic obstructive pulmonary disease; tobacco dependency. 7. Shock liver. 8. Sleep apnea, not on therapy. RECOMMENDATIONS: 1. Echocardiogram. 2. Infectious Disease and Pulmonary consultations. 3. Avoid nephrotoxic medications. 4. Further thoughts and plans will be forthcoming based on this evaluation. Thank you for asking me to participate in the care of this very ill gentleman. <ELECTRONICALLY SIGNED> By: Estrada Lyle MD, [facility] 07/04/18 0819 1003 1212 Estrada Lyle MD, FACC /nt
[2018-07-04 11:36] LABS: ALBUMIN 2.5 g/dL (3.4-5.0); DIRECT BILIRUBIN 0.2 mg/dL (<0.1-0.3); TOTAL BILIRUBIN 0.7 mg/dL (<0.1-1.0); TOTAL PROTEIN 6.3 g/dL (6.4-8.2)
--- NOTE | 2018-07-04 13:29 | NUR ---
ASSESSED RTLPICC, DRESSING COMING OFF AND LINE NOT BEING UTILIZED AT THIS TIME. PT ONLY HAS ZOSYN ORDERED. DC'D PICC AND A FIBRIN SHEATH/THROMBOSIS ATTACHED TO CATHETER IT'S ENTIRE LENGTH. ASSESSED HIS RT BASILIC VESSEL WOULD NOT COMPRESS WITH US. RECOMMENDED AN OFFICIAL US TO DETECT ANY ISSUES
--- NOTE | 2018-07-04 13:35 | NUR ---
INITIAL ASSESSMENT: SW reviewed chart and spoke with nursing and attending physician. Pt was admitted from home due to altered mental status. Pt was transferred to 3W from ICU and is progressing towards goals for discharge. Anticipated discharge is for tomorrow. Pt may need HH services. Pt was hypoxic earlier today and given lasix. Pt lives at home with . Prior to admission, pt was independent with ADLs. Pt became agitated this afternoon. Pt's PCP is Dr. Henderson. Plan is for pt to d/c home when medically stable. SW will meet with pt at a later time to discuss HH services. SW is following to assist as needed with discharge planning.
[2018-07-04 15:07] LABS: HAV IgM AB (ANTI-HAV IgM) Negative (Negative); HEPATITIS B SURFACE AG Negative (Negative); HEPATITIS C VIRUS AB <0.1 (0.0-0.9)
--- NOTE | 2018-07-04 15:46 | NUR ---
Able to reach Dr. Renae regarding ultrasound results for right extremity and positive clots. Notified that PICC and new peripheral IV were discontinued and new PIV access to left arm. Also asked about pain medications, as patient is asking to decrease the dose. Okay to change to Oxycodone 10 mg q4 hours PRN. Also asked about Lorazepam vs Alprazolam, as patient was asking about this. Physician states to leave lorazepam as is, for now.
--- NOTE | 2018-07-04 20:29 | NUR ---
Assumed care of patient at 0700. Vitals have been stable. Alert today, although somewhat drowsy at times; oriented x2-4 this shift. Patient unsure of place and year, at times. Otherwise, redirectable and can answer questions appropriately. Follows commands. Forgetful and appears confused some times, asking questions that are inappropriate during conversations. Complaints of intense headache pain this morning. PRN Oxycodone administered with good effect. See previous note regarding decrease in pain medicine. Otherwise, complains of chronic back pain and anxiety, but is attempting to decrease amount of PRNs taken. Remains on 4L NC. Attempting to wean oxygen today, but oxygen saturations only between 92-94%. Patient drops O2 quickly without oxygen on or with activity. Continuous pulse ox in place. Onetime dose of lasix given today with good effect. Voiding per urinal. Up with one assist and gait belt. Fall precautions in place. Has sat in chair most of shift. Lots of family visiting at bedside today and calling to check in on patient. Provided with updates. Attempting to progress towards POC. Will continue to monitor.
[2018-07-05 04:37] VITALS: BP 137/84
--- NOTE | 2018-07-05 05:47 | NUR ---
ASSUMED PT CARE AROUND 1900. ORIENTED X2-3, FORGETFUL AND MAKES CONFUSED STATEMENTS AT TIMES. C/O BACK PAIN. FREQUENTLY ASKED FOR PAIN MEDICATION WHEN HE WAS AWAKE. PT SAT UP IN CHAIR FOR A WHILE AT BEGINNING OF SHIFT. TOLERATED WELL. PT SLEPT MOST OF THE NIGHT. 3-4L NC. PROGRESSING TOWARD POC GOALS. WILL CONTINUE TO MONITOR FURTHER.
[2018-07-05 05:53] LABS: ALBUMIN 2.7 g/dL (3.4-5.0); CALCIUM 8.7 mg/dL (8.5-10.1); CREATININE 0.7 mg/dL (0.7-1.3); PHOSPHORUS 3.7 mg/dL (2.5-4.9); POTASSIUM 3.7 mmol/L (3.5-5.1)
[2018-07-05 08:20] VITALS: BP 127/76
[2018-07-05 12:28] VITALS: BP 139/89
--- NOTE | 2018-07-05 14:53 | NUR ---
SW reviewed chart and spoke with nursing and attending physician. Pt is progressing towards goals for discharge. Discharge home is anticipated for tomorrow. SW met with pt at bedside. Introduced role of SW. Pt is alert/orientated x 4. Pt reports he live at home with his . Pt is currently on 4L of O2 and was not on O2 prior to admission. SW discussed need for HH services. Pt is agreeable. SW confirmed pt's home address and phone number. Pt's PCP is Dr. Henderson. Rest/exercise oximetry to be completed tomorrow. SW is following to assist as needed with discharge planning.
[2018-07-05 16:59] VITALS: BP 152/102
--- NOTE | 2018-07-05 18:06 | NUR ---
ASSUMED PATIENT CARE AT 0700. A/O TO SELF. TOLERATED ON 4L/NC. UP AMBULATED WITH STEADY GAIT. PROGRESSING TOWARDS POC GOALS.
[2018-07-05 19:27] VITALS: BP 143/95
--- NOTE | 2018-07-06 03:19 | NUR ---
ASSUMED PT CARE AROUND 190. A&OX3-4, FORGETFUL. C/O CHRONIC BACK PAIN. PRN PAIN MEDICATION GIVEN WITH SOME RELIEF. PT SLEPT MOST OF THE NIGHT. RESP EVEN AND UNLABORED. VOIDS PER URINAL. NO MAJOR COMPLAINTS THIS SHIFT. PROGRESSING TOWARD POC GOALS. WILL CONTINUE TO MONITOR FURTHER.
[2018-07-06 04:11] VITALS: BP 115/75
[2018-07-06 05:25] LABS: ALBUMIN 2.6 g/dL (3.4-5.0); CALCIUM 8.9 mg/dL (8.5-10.1); CREATININE 0.9 mg/dL (0.7-1.3); PHOSPHORUS 3.2 mg/dL (2.5-4.9); POTASSIUM 3.6 mmol/L (3.5-5.1)
[2018-07-06 05:28] LABS: ALBUMIN 2.8 g/dL (3.4-5.0); DIRECT BILIRUBIN 0.2 mg/dL (<0.1-0.3); TOTAL BILIRUBIN 0.7 mg/dL (<0.1-1.0); TOTAL PROTEIN 6.6 g/dL (6.4-8.2)
[2018-07-06 07:23] VITALS: BP 99/66
[2018-07-06] MEDS ORDERED: AUGMENTIN 875-1 EACH PO (09:37)
[2018-07-06] MEDS ORDERED: SEREVENT DISKU50 MCG INH (09:39)
--- NOTE | 2018-07-06 10:47 | NUR ---
ASSUMED PT CARE AT 0700H. PT ALERT AND ORIENTED TO SELF, AND SITUATION. PT HAS NO S/S OF DISTRESS. PT STATES BACK PAIN OF 4/10. PT HAD GOTTEN PRN MED. PT TOLERATES MEALS AND MEDS. PT CURRENTLY AWAITING DC TO HOME. PT'S CALL LIGHT WITHIN REACH AND CONTINUES TO BE MONITORED FOR SAFETY.
[2018-07-06 10:55] VITALS: BP 99/66
--- NOTE | 2018-07-06 13:55 | NUR ---
DISCHARGE NOTE: ALTAF reviewed chart and spoke with nursing and attending physician. Pt is medically stable for discharge home today. Rest/exercise oximetry completed. Pt does qualify for home O2: 4L. ALTAF spoke with pt's , Mariana, via phone to discuss discharge plan. Pt's son was also on the phone. SW discussed need for pt to have home O2. Pt's family requests HH to assist with pt returning home and for assistance with recommendations for making their home more accessible for pt. Lengthy discussion with pt's family about discharge and encouraged pt to follow up with his PCP for continued oversight. ALTAF discussed options for DME and HH providers. No preference voiced. ALTAF notified intake at [facility] and [facility] liaison. [facility] is unable to accept pt. ALTAF sent info to [facility] and notified liaison. [facility] will deliver a portable tank to pt's room prior to discharge. Contact info for [facility] and [facility] placed in pt's discharge summary. Pt's niece will provide transportation home. ALTAF updated attending physician to request orders for HH. No additional SW needs identified at this time, but is available to assist should needs arise.
[2018-07-06 15:57] VITALS: BP 110/85
--- NOTE | 2018-07-12 09:41 | HC ---
[facility] [address] [place] [address] CONSULTATION Name: MURPHY HARVEY Room #: 351-P [facility] IN M.R.#: [id number] Admission: 07/01/18 Attend Phys: Ulises Renae Discharge: 07/06/18 Date of : 58 Report #: [id number] THIS REPORT FOR: //name// CC: Ulises Henderson REASON FOR CONSULTATION: Acute kidney injury. REASON FOR PRESENTATION: Not feeling well. HISTORY OF PRESENT ILLNESS: A 58-year-old with no known previous kidney problems. He is known to have coronary artery disease. He has not been feeling well in the last few weeks and was seen by his primary care physician, Dr. Henderson. He was started on amoxicillin and then switched to Z-FEMI. He was also started on lisinopril. After the lisinopril was started, he had episodes of dizziness, lightheadedness with slumped over and unconscious condition when his son was trying to get him to use the bathroom. No previous similar episodes. No urinary symptoms. The patient presented to the Emergency Room and he was found to have an acute kidney injury and metabolic acidosis. PAST MEDICAL HISTORY: 1. Sleep apnea. 2. Hypertension. 3. Coronary artery disease. 4. Hyperlipidemia. 5. Chronic obstructive pulmonary disease. 6. Back issues. 7. Diverticulosis. SOCIAL HISTORY: He is a smoker. He is and lives with his . REVIEW OF SYSTEMS: GENERAL: No fever or chills, but significant weakness. CARDIOVASCULAR: Denies chest pain or palpitation. PULMONARY: No cough or hemoptysis. GASTROINTESTINAL: No nausea or vomiting. GENITOURINARY: No frequency, no urgency. NEUROLOGICAL: As per the history of present illness. MEDICATIONS: 1. Z-FEMI: 2. Aspirin. 3. Levothyroxine. 4. Lisinopril. 5. Pravastatin: PHYSICAL EXAMINATION: [facility] [address] [place] [address] CONSULTATION Name: MURPHY HARVEY Room #: 351-P DIS IN [facility].#: [id number] Admission: 07/01/18 Attend Phys: Ulises Renae Discharge: 07/06/18 Date of : 58 Report #: [id number] GENERAL: Alert, oriented. VITAL SIGNS: Temperature 37.4, blood pressure is 143/90, when he presented to the Emergency Room yesterday he was on the hypotensive side. HEAD AND NECK: No jugular venous distention. CHEST: No crackles. CARDIOVASCULAR: No rub detected. ABDOMEN: Soft, nontender. LOWER EXTREMITIES: No edema with intact peripheral pulses. LABORATORY DATA: Reviewed. He had a creatinine value of 0.9, down from 2.9 yesterday. Sodium 140, potassium 3.9. Liver enzymes are going up. ASSESSMENT, IMPRESSION: 1. Hypertension, iatrogenic due to an JENNIFER inhibitor 2. Acute kidney injury. 3. Hyperkalemia. 4. Elevated liver enzyme. PLAN: 1. The patient's acute kidney injury was due to prerenal condition. This has improved. Urine culture is pending. Discontinue IV fluid. Avoid further JENNIFER inhibitor. 2. Investigate the source for his elevated liver enzymes, probably related to hypotension. 3. GI following. 4. ID following. <ELECTRONICALLY SIGNED> By: Holden Li MD 07/12/18 0941 [id number] Holden Li MD /nt
== END 2018-07-06 18:00 | disposition home or self-care (01) | DRG 871 ==
LOC: ER 05:41 → 3W 08:08 → ICU 08:08 → 3W 07-03 10:38 → ENTRNSPT 07-06 17:52 → 3W 07-06 18:00
PROVIDERS: Emergency Medicine; Internal Medicine Gastroenterology; Nurse Practitioner; Specialist; Student in an Organized Health Care Education/Training Program; ADMIT Hospitalist
PROC: 02HV33Z Insertion of Infusion Device into Superior Vena Cava, Percutaneous Approach (ICD-10-PCS; principal; 2018-07-01)
DX: A41.9 Sepsis, unspecified organism (principal); R65.21 Severe sepsis with septic shock; K72.00 Acute and subacute hepatic failure without coma; J96.01 Acute respiratory failure with hypoxia; G92 Toxic encephalopathy; N17.9 Acute kidney failure, unspecified; E46 Unspecified protein-calorie malnutrition; F41.9 Anxiety disorder, unspecified; I10 Essential (primary) hypertension; E03.9 Hypothyroidism, unspecified; E78.5 Hyperlipidemia, unspecified; E87.5 Hyperkalemia; I95.9 Hypotension, unspecified; R74.0 Nonspecific elevation of levels of transaminase and lactic acid dehydrogenase [LDH]; I25.10 Atherosclerotic heart disease of native coronary artery without angina pectoris; K57.90 Diverticulosis of intestine, part unspecified, without perforation or abscess without bleeding; I27.20 Pulmonary hypertension, unspecified; J44.9 Chronic obstructive pulmonary disease, unspecified; D69.6 Thrombocytopenia, unspecified; F17.210 Nicotine dependence, cigarettes, uncomplicated; G47.33 Obstructive sleep apnea (adult) (pediatric); F12.90 Cannabis use, unspecified, uncomplicated; N30.90 Cystitis, unspecified without hematuria; G89.4 Chronic pain syndrome; Z95.5 Presence of coronary angioplasty implant and graft; Z89.021 Acquired absence of right finger(s); I25.2 Old myocardial infarction; Z88.8 Allergy status to other drugs, medicaments and biological substances; Z82.49 Family history of ischemic heart disease and other diseases of the circulatory system; Z68.34 Body mass index [BMI] 34.0-34.9, adult
CPT/HCPCS: 10078; 10779; 10879; 27000

== ENCOUNTER 2018-07-15 14:26 | Inpatient (IN) | payer OTHER ==
[~2018-07-15] VITALS: Ht 188 cm; Wt 137.4 kg
[~2018-07-15 14:26] MED LIST changes: +AUGMENTIN 875-1 EACH PO; +SEREVENT DISKU50 MCG INH; +SYNTHROID150 MCG PO
[2018-07-15 14:44] VITALS: BP 114/80
[2018-07-15 15:28] LABS: BE(vivo) 5.1 mmol/L (-2 to +3); HCO3 30.9 mmol/L (22.0-26.0); PCO2 49.8 mmHg (35.0-45.0); pH 7.411 (7.360-7.450); sO2 89.1 % (92.0-98.0)
[2018-07-15 15:29] LABS: PO2 55.9 mmHg (80.0-100.0)
[2018-07-15 16:39] LABS: HEMATOCRIT 42.8 % (42.0-52.0); MCH 30.2 pg (26.0-34.0); MCHC 32.7 g/dL (28.0-37.0); MCV 92.3 fL (80.0-100.0); RBC 4.63 mil/uL (4.50-6.00); RDW 15.3 % (10.5-14.5); WBC 21.7 thou/uL (4.0-11.0)
[2018-07-15 16:45] VITALS: BP 116/92
[2018-07-15 16:50] LABS: ANION GAP 3 mmol/L (7-16); BUN 17 mg/dL (7-18); CALCIUM 9.6 mg/dL (8.5-10.1); CHLORIDE 98 mmol/L (98-107); CO2 31 mmol/L (21-32); CREATININE 0.9 mg/dL (0.7-1.3); GLUCOSE 107 mg/dL (74-106); SODIUM 132 mmol/L (136-145)
[2018-07-15 16:51] LABS: POTASSIUM 4.9 mmol/L (3.5-5.1)
[2018-07-15 16:59] LABS: TROPONIN-I <0.06 ng/mL (<0.06)
[2018-07-15 18:42] VITALS: BP 114/73
[2018-07-15 19:50] VITALS: BP 100/56
[2018-07-15 23:20] VITALS: BP 108/62
[2018-07-16] MEDS ORDERED: FISH OIL 1,001000 M2 PO (00:16)
[2018-07-16] MEDS ORDERED: KLOR-CON 1010 MEQ PO (00:16)
[2018-07-16 04:20] VITALS: BP 115/68
[2018-07-16 07:36] VITALS: BP 112/83
--- NOTE | 2018-07-16 08:08 | NUR ---
patient is alert and oriented. 8l nc. patients pain is contorlled. provider is fixing medications today. wcm.
[2018-07-16] MEDS ORDERED: XANAX1 MG PO (14:21)
[2018-07-16 15:51] VITALS: BP 105/73
--- NOTE | 2018-07-16 19:44 | NUR ---
PT BREATHING EASIER ON 6L NOW..LUNGS DIMINSHED AND WHEEZY...WILL MONITOR..
[2018-07-16 19:50] VITALS: BP 121/80
[2018-07-17 04:00] VITALS: BP 112/84
--- NOTE | 2018-07-17 05:22 | NUR ---
PATIENT IS ALERT AND ORIENTED. PATIENT IS ON 6 L NC. PATIENTS PAIN IS CONTROLLED WITH PAIN MEDICITON. PATIENT IS ACHS UNKNOWN REASON WHY. PATIENT SHOWERED INDEPENDENTLEY. PATIENT IS SBA. PATIENT USES URINAL. PATIENT IS RESTING COMFORTABLEY IN BED. WCM. PATIENT IS PROGRESSING TO GOALS.
[2018-07-17 07:23] VITALS: BP 107/72
[2018-07-17 07:46] LABS: HEMATOCRIT 38.4 % (42.0-52.0); HEMOGLOBIN 12.5 gm/dL (14.0-18.0); MCH 30.2 pg (26.0-34.0); MCHC 32.6 g/dL (28.0-37.0); MCV 92.8 fL (80.0-100.0); RBC 4.13 mil/uL (4.50-6.00); RDW 15.7 % (10.5-14.5)
[2018-07-17 08:07] LABS: ALBUMIN 2.7 g/dL (3.4-5.0); CALCIUM 8.5 mg/dL (8.5-10.1); CREATININE 0.8 mg/dL (0.7-1.3); PHOSPHORUS 3.6 mg/dL (2.5-4.9); POTASSIUM 4.2 mmol/L (3.5-5.1)
--- NOTE | 2018-07-17 08:27 | EKG ---
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: ROSEY : 1960 Requested By: Rommel Epstein Order Number: [id number] MD: Estrada Lyle Measurements Intervals [place] Rate: 109 P: 44 SD: 174 QRS: 48 QRSD: 101 T: 11 QT: 356 QTc: 480 Interpretive Statements Sinus tachycardia Nonspecific T abnormalities Borderline prolonged QT interval Compared to ECG 07/02/2018 10:15:38 T-wave abnormality is less pronounced Electronically Signed On 07-17-2018 8:27:07 CONCRETE ENGINEERING TECHNICIAN by Estrada Lyle [email or web address] <ELECTRONICALLY SIGNED> By: Estrada Lyle MD, [facility] 07/17/18 0827 D: [id number] Estrada Lyle MD, FACC /EPI
--- NOTE | 2018-07-17 10:35 | NUR ---
INITIAL ASSESSMENT: Received consult. SW reviewed chart and spoke with nursing. Pt was admitted from home due to hypoxia/sepsis. Pt is currently on 5.5L of continuous O2 and is on IV abx: vanco/zosyn. Pt was recently discharged home from [facility] on 07/06 with HH services and home O2. SW met with pt at bedside. Introduced role of SW. Pt is alert/orientated. Pt lives at home with his . Pt's son is involved in pt's care. Prior to admission, pt was independent with ADLs. Pt is normally on 4L of O2 (provided by [facility]). Pt states HH ([facility]) is still coming to see him. Pt's PCP is Dr. Ata Henderson. No therapy orders currently. SW is following to assist as needed with discharge planning.
[2018-07-17 16:00] VITALS: BP 140/99
[2018-07-17 19:50] VITALS: BP 119/79
[2018-07-18] VITALS (7 sets, daily range): BP systolic 120–130; BP diastolic 80–90
--- NOTE | 2018-07-18 03:19 | NUR ---
SLEPT MOST OF SHIFT. UP FREQUENTLY AT BEDSIDE TO VOID. MAINTAIN SAFE ENVIRONMENT. WORKING ON GOALS AND PLAN OF CARE. PROGRESSING SLOWLY TOWARDS DISCHARGE GOALS. PAIN MEDICATION AND ANTIANXIETY MEDS GIVEN WITH NOTED RELIEF. CONTINUE TO ASSES CLOESLY.
[2018-07-18] MEDS ORDERED: TERBINAFINE HCL30 GM TOP (08:44)
[2018-07-18] MEDS ORDERED: SYNTHROID300 MCG PO (08:44)
[2018-07-18] MEDS ORDERED: LEVAQUIN 750 M750 MG PO (08:52)
--- NOTE | 2018-07-18 14:27 | NUR ---
DISCHARGE NOTE: SW reviewed chart and spoke with nursing and attending physician. Pt is medically stable for discharge home with services. Pt will resume HH services through [facility]. Rest/exercise oximetry completed and pt now needs 5L at rest and 6L with activity. Pt's home concentrator goes up to 5L and will need to be replaced by [employer]. SW met with pt and son at bedside to discuss discharge plan. Pt has a portable tank at bedside for the transport home. Pt and son aware that [facility] will be resumed. Pt's son will provide transportation home. SW faxed clinical info and script to [facility] and notified [facility] liaison of new orders. [facility] will coordinate with pt the delivery of new concentrator. Copy of script placed on pt's chart. Original script given to pt. ALTAF notified intake at [facility] of discharge orders. Contact info for [facility] and [facility] placed in pt's discharge summary. No additional SW needs identified at this time, but is available to assist should needs arise.
--- NOTE | 2018-07-18 15:06 | NUR ---
PT DISCHARGED HOME W/ HH AND O2 6L ACTIVITY AND 5L REST...RX'S GIVEN...DISCHARGE INSTRUCTIONS GIVEN WITH SON...
== END 2018-07-18 15:02 | disposition home health service (06) | DRG 871 ==
LOC: ER 14:26 → EROBS 17:17 → 3W 17:17 → ENTRNSPT 07-18 14:50 → 3W 07-18 15:02
PROVIDERS: Emergency Medicine; ADMIT Hospitalist
DX: A41.9 Sepsis, unspecified organism (principal); J96.01 Acute respiratory failure with hypoxia; J15.6 Pneumonia due to other Gram-negative bacteria; F11.20 Opioid dependence, uncomplicated; F41.9 Anxiety disorder, unspecified; I10 Essential (primary) hypertension; G89.29 Other chronic pain; B37.9 Candidiasis, unspecified; M54.5 Low back pain; Y95 Nosocomial condition; E03.9 Hypothyroidism, unspecified; E78.5 Hyperlipidemia, unspecified; F17.210 Nicotine dependence, cigarettes, uncomplicated; I25.2 Old myocardial infarction; Z98.1 Arthrodesis status; Z95.5 Presence of coronary angioplasty implant and graft; Z89.021 Acquired absence of right finger(s); Z79.82 Long term (current) use of aspirin; Z79.899 Other long term (current) drug therapy; Z88.8 Allergy status to other drugs, medicaments and biological substances; Z28.21 Immunization not carried out because of patient refusal
CPT/HCPCS: 10879

== ENCOUNTER → 2018-09-13 | Outpatient (CLI) | payer OTHER ==
[~2018-09-13] MED LIST changes: +KLOR-CON 1010 MEQ PO; +LEVAQUIN 750 M750 MG PO; +SYNTHROID300 MCG PO; +TERBINAFINE HCL30 GM TOP; +XANAX1 MG PO
== END ==
LOC: CAT 13:15
DX: J43.2 Centrilobular emphysema (principal); J43.8 Other emphysema; I25.10 Atherosclerotic heart disease of native coronary artery without angina pectoris; Z88.8 Allergy status to other drugs, medicaments and biological substances

== ENCOUNTER → 2018-10-01 | Outpatient (CLI) | payer OTHER ==
--- NOTE | 2018-10-02 16:58 | SLE ---
[facility] [place] [address] POLYSOMNOGRAPHY STUDY Name: MURPHY HARVEY Room #: REG SCOUT [facility].#: [id number] Admission: 10/01/18 ������������������ Attend Phys: Heriberto Vivas MD Discharge: ������������������ Date of : 58 Report #: [id number] THIS REPORT FOR: //name// CC: Heriberto Henderson DATE OF SERVICE: 10/01/2018 ATTENDING PHYSICIAN: Dr. Sylvester Skinner. The patient is 58 years old who weighs 272 pounds with a BMI of 33.1. The patient's [place] score was 8. The patient underwent diagnostic sleep study at [facility]. During the night study, the patient spent 495 minutes in bed and slept for 433 minutes with a sleep efficiency of 87%. Sleep latency was 72 minutes, which is prolonged with a REM latency of 232 minutes. Sleep architecture showed normal stage 1 sleep and increased stage 2 sleep, absent N3 sleep and reduced REM sleep. During the night study, the patient had 18 obstructive apneas, 1 mixed apnea and 5 central apneas. There were 81 hypopneas. The patient's apnea hypopnea index was 14.5 per hour. REM index of 4.8 per hour and a supine index of 25 per hour. EKG monitoring revealed a mean heart rate of 75 beats per minute with a maximum of 94 beats per minute. No sustained arrhythmias observed. No PLMS observed. Nocturnal oximetry study revealed an average oxygen saturation of 85%, with lowest of 72%. 354 minutes were spent at an oxygen saturation of less than 89% and 53 minutes with saturation of less than 79%. Due to low AHI, the patient did not meet the split night criteria for CPAP initiation. IMPRESSION: 1. Mild sleep apnea-hypopnea syndrome with moderate increase during supine sleep. Total AHI 14.5 per hour with a supine AHI of 25 per hour. 2. Nocturnal hypoxia secondary to combination of obstructive sleep apnea and hypoventilation. 3. No clinically significant periodic limb movements. RECOMMENDATIONS: 1. The patient's sleep apnea can be treated with either an oral appliance as [facility] [address] [place] [address] POLYSOMNOGRAPHY STUDY Name: CANDICEMURPHY [id number] Admission: 10/01/18 ������������������ Attend Phys: Heriberto Vivas MD Discharge: ������������������ Date of : 58 Report #: [id number] recommended by the dentist versus a trial of CPAP. 2. Once the patient is optimally treated, then follow up in 4-6 weeks to assess compliance and to document clinical improvement. 3. Weight loss is strongly advised. 4. Avoid TILE APPLICATOR depressants. 5. Cautioned regarding driving until symptoms of sleep apnea resolve with the above recommendations. ��������������������������������������������� <ELECTRONICALLY SIGNED> ���������������������������������������� By: Heriberto Vivas MD ��������������������������������������������� 10/02/18 1658 [id number] Heriberto Vivas MD /francisco javier
== END ==
LOC: SLEEPLAB 09-29 15:30
DX: G47.33 Obstructive sleep apnea (adult) (pediatric) (principal); G47.34 Idiopathic sleep related nonobstructive alveolar hypoventilation; Z88.8 Allergy status to other drugs, medicaments and biological substances; Z68.33 Body mass index [BMI] 33.0-33.9, adult

== ENCOUNTER → 2019-07-18 | Outpatient (CLI) | payer OTHER ==
[~2019-07-18] VITALS: Ht 188 cm; Wt 117.0 kg
[~2019-07-18] MED LIST changes: +CRESTOR40 MG PO; +DULERA 200 MCG/13 GM INH; +PERCOCET 10-321 EAC1 PO; +XANAX2 MG PO
[2019-07-18 14:47] VITALS: BP 120/99
--- NOTE | 2019-07-18 15:18 | NUR ---
Pain Clinic Assessment: 1. History of Osteoarthritis: BACK HIPS History of Rheumatoid Arthritis: Not Applicable 2. Height: 6 ft. 2 in. 188.0 cm. Weight: 258.0 lb. oz. 117.028 kg. Patient's BMI: 33.1 3. Vital Signs: BP: 120/99 Pulse: 89 Resp: 20 Temp: 02 Sat: 97 ECG Mon: 4. Pain Intensity: 9-10 5. Fall Risk: Dizziness: N Needs help standing or walking: N Fallen in the last 3 months: Y Fall risk comments: 6. Patient on Blood Thinner: None 7. History of Hypertension: Y 8. Opioid Therapy greater than 6 weeks: N Opiate Contract Signed: 9. Risk Assessment Tool Provided: LOW-1 10. Functional Assessment Tool: 64/70 11. Recreational Drug Use: Current within past 3 mos Drug Type: Tobacco Use: Current Every Day Smoker Tobacco Type: Cigarettes Amount or Packs/day: 10 How Many Years: 40 Alcohol Use: No Frequency: Quant:
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
== END ==
LOC: PAIN 13:37
DX: M54.5 Low back pain (principal); M79.661 Pain in right lower leg; M79.662 Pain in left lower leg; G89.29 Other chronic pain; I10 Essential (primary) hypertension; J44.9 Chronic obstructive pulmonary disease, unspecified; I25.10 Atherosclerotic heart disease of native coronary artery without angina pectoris; E03.9 Hypothyroidism, unspecified; M19.90 Unspecified osteoarthritis, unspecified site; F17.200 Nicotine dependence, unspecified, uncomplicated; G47.33 Obstructive sleep apnea (adult) (pediatric); Z79.891 Long term (current) use of opiate analgesic; Z79.899 Other long term (current) drug therapy

== ENCOUNTER → 2019-12-21 | Outpatient (CLI) | payer OTHER | LOC: SJCVC 13:05 | PROVIDERS: ATTEND Internal Medicine Cardiovascular Disease | DX: I25.10 Atherosclerotic heart disease of native coronary artery without angina pectoris (principal); J96.11 Chronic respiratory failure with hypoxia; J96.12 Chronic respiratory failure with hypercapnia; G47.33 Obstructive sleep apnea (adult) (pediatric); E78.00 Pure hypercholesterolemia, unspecified; I65.23 Occlusion and stenosis of bilateral carotid arteries; M54.9 Dorsalgia, unspecified ==

== ENCOUNTER → 2020-10-02 | Outpatient (CLI) | payer OTHER | LOC: SJCVCIMAG 09:34 | PROVIDERS: ATTEND Internal Medicine Cardiovascular Disease | DX: Z01.818 Encounter for other preprocedural examination (principal); I25.10 Atherosclerotic heart disease of native coronary artery without angina pectoris; R06.00 Dyspnea, unspecified; E78.00 Pure hypercholesterolemia, unspecified; I65.23 Occlusion and stenosis of bilateral carotid arteries; G47.33 Obstructive sleep apnea (adult) (pediatric); J44.9 Chronic obstructive pulmonary disease, unspecified; E78.5 Hyperlipidemia, unspecified; E03.9 Hypothyroidism, unspecified; F17.210 Nicotine dependence, cigarettes, uncomplicated; Z98.61 Coronary angioplasty status; Z88.8 Allergy status to other drugs, medicaments and biological substances; Z79.899 Other long term (current) drug therapy; Z82.49 Family history of ischemic heart disease and other diseases of the circulatory system ==